=== PATIENT | male | born 1945 | race Caucasian/White ===

== ENCOUNTER 2017-05-04 19:28 | Emergency (ER) | payer OTHER, MEDICARE ==
--- OUTSIDE RECORDS SUMMARY | 2017-05-04 19:30 | XMS REPORT | Clinical Summary ---
:1945 Author Organization [facility] Address [address] [place] [address] Care Team Providers Name Role Phone Redd Kimble MD Primary Care Provider Allergies No Known Allergies Current Medications Not on file Active Problems Not on file Encounters Date Type Specialty Care Team Description 04/26/2017 Hospital Encounter Radiology Jaun Johnson, Cystic disease of liver; Abnormal findings on dx imaging of prt digestive tract; Obesity, unspecified classification, unspecified obesity type, unspecified whether serious comorbidity present; Metabolic syndrome 04/24/2017 Procedure Pass Radiology 04/24/2017 Transcribe Orders Access Jaun Johnson Cystic disease of liver (Primary Dx); Abnormal findings on dx imaging of prt digestive tract; Obesity, unspecified classification, unspecified obesity type, unspecified whether serious comorbidity present; Metabolic syndrome after 05/03/2016 Social History Tobacco Use Types Packs/Day Years Used Date Never Assessed Sex Assigned at Date Recorded Not on file Last Filed Vital Signs Vital Sign Reading Time Taken Blood Pressure - - Pulse - - Temperature - - Respiratory Rate - - Oxygen Saturation - - Inhaled Oxygen Concentration - - Weight 98 kg (216 lb) 04/26/2017 11:13 AM CDT Height - - Body Mass Index - - Plan of Treatment Health Maintenance Due Date Last Done Comments COLONOSCOPY 11/11/1993 ZOSTER VACCINE 2003 PNEUMOCOCCAL POLYSACCHARIDE VACCINE AGE 65 AND OVER 11/11/2008 PNEUMOCOCCAL-13 11/11/2008 INFLUENZA VACCINE 09/11/2016 Results MRI Abdomen W Wo Contrast (04/26/2017 12:20 PM) Specimen Performing Laboratory [facility] [address] [place] [address] Narrative EXAMINATION:MRI ABDOMEN W WO CONTRAST CLINICAL HISTORY:Q44.6 Cystic disease of liver, R93.3 Abnormal findings on diagnostic imaging of other parts of digestive tract, Q44.6R93.3E66.9E88.81 TECHNIQUE: Multiplanar multisequence MR images of the abdomen were obtained pre - and post dynamic intravenous administration of Gadolinium.. COMPARISON:None IMPRESSION: 1.Multiple cysts are present throughout the liver. The largest measures 6 x 5.3 x 4.1 cm in segment 2. Numerous other subcentimeter scattered cysts are present throughout all segments of both lobes. No suspicious solid mass present. 2.The gallbladder is unremarkable. No intra or extra hepatic biliary ductal dilatation present. The pancreatic duct is not dilated. 3.A small 2 mm cyst is present in the uncinate process of the pancreas likely representing a side branch IPMN. The pancreatic duct is not dilated 4.Small 2 to 3 mm cyst in the kidneys. No solid mass or hydronephrosis present 5.The spleen and adrenals are within normal limits. No significant lymphadenopathy free fluid present 6.Lung bases are clear 7.Bony structures are within normal limits Incidental Abdominal findings [facility] PQRS #[id number] required reporting elements: Liver < 0.5 cm: none Recommendation:n/a Cystic Renal < 1 cm: none Recommendation:n/a Adrenal < 1 cm:none Recommendation:n/a [facility]-[id number] Procedure Note Hm Interface, Radiology Results Incoming - 04/26/2017 12:28 PM CDT EXAMINATION: MRI ABDOMEN W WO CONTRAST CLINICAL HISTORY: Q44.6 Cystic disease of liver, R93.3 Abnormal findings on diagnostic imaging of other parts of digestive tract, Q44.6 R93.3 E66.9 E88.81 TECHNIQUE: Multiplanar multisequence MR images of the abdomen were obtained pre - and post dynamic intravenous administration of Gadolinium. . COMPARISON: None IMPRESSION: 1. Multiple cysts are present throughout the liver. The largest measures 6 x 5.3 x 4.1 cm in segment 2. Numerous other subcentimeter scattered cysts are present throughout all segments of both lobes. No suspicious solid mass present. 2. The gallbladder is unremarkable. No intra or extra hepatic biliary ductal dilatation present. The pancreatic duct is not dilated. 3. A small 2 mm cyst is present in the uncinate process of the pancreas likely representing a side branch IPMN. The pancreatic duct is not dilated 4. Small 2 to 3 mm cyst in the kidneys. No solid mass or hydronephrosis present 5. The spleen and adrenals are within normal limits. No significant lymphadenopathy free fluid present 6. Lung bases are clear 7. Bony structures are within normal limits Incidental Abdominal findings [facility] PQRS #405 required reporting elements: Liver < 0.5 cm: none Recommendation: n/a Cystic Renal < 1 cm: none Recommendation: n/a Adrenal < 1 cm: none Recommendation: n/a [facility]-[id number] POC creatinine (04/26/2017 11:16 AM) Component Value Ref Range POC creatinine 1.1 0.7 - 1.2 mg/dl Comment: Meter ID: [id number] Studio Potter: Claude Fenton Specimen Performing Laboratory Blood [facility] DEPARTMENT OF PATHOLOGY AND GENOMIC MEDICINE [address] [place] [address] after 05/03/2016 Insurance Payer Benefit Plan / Group Subscriber ID Type Phone Address MEDICARE MEDICARE PART A AND B xxxxxxxxxx Medicare [place], [place] AARP AARP SUPPLEMENT xxxxxxxxxxx Commercial Home: [address] [phone] [id number]
--- NOTE | 2017-05-04 20:50 | RAD REPORT ---
EXAM DESCRIPTION: Crystal Garcia (2 Views)05/04/2017 8:38 pm CLINICAL HISTORY: Chest pain COMPARISON: 2013 FINDINGS: The lungs appear clear of acute infiltrate. The heart is normal size. Postsurgical changes involve the chest. IMPRESSION: No acute abnormalities displayed
[2017-05-04] MEDS ORDERED: HYDROCODONE/APAP 5/325 MG TAB ONE (21:07)
[2017-05-04] MEDS ORDERED: IBUPROFEN 400 MG TAB ONE (21:08)
[2017-05-04] MEDS ORDERED: IBUPROFEN 200 MG TAB PO ONE (21:08)
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
[2017-05-04 21:44] VITALS: TEMP 98.1
[2017-05-04 21:45] VITALS: BP 148/88; O2SAT 96
== END 2017-05-04 21:36 | disposition home or self-care (01) ==
LOC: ER 19:28
DX: S29.011A Strain of muscle and tendon of front wall of thorax, initial encounter (principal); W22.8XXA Striking against or struck by other objects, initial encounter; Y93.89 Activity, other specified; Y92.89 Other specified places as the place of occurrence of the external cause; Z79.01 Long term (current) use of anticoagulants; Z79.82 Long term (current) use of aspirin; I10 Essential (primary) hypertension; E78.5 Hyperlipidemia, unspecified
CPT/HCPCS: 71046; 99284

== ENCOUNTER 2021-07-11 09:56 | Day surgery (SDC) | payer OTHER, MEDICARE ==
[2021-07-05 09:33] LABS: Absolute Lymphocytes (CBC) 1.8 K/uL (0.7-4.9); Hematocrit 45.8 % (39.6-49.0); Lymphocytes % 30.4 % (15.3-44.8); RBC Red Blood Cell Count 4.94 M/uL (4.33-5.43)
[2021-07-05 09:49] LABS: Protime INR 0.96
[2021-07-05 09:57] LABS: Potassium 4.4 mmol/L (3.5-5.1)
[2021-07-05 10:08] LABS: Urine Appearance CLEAR (Clear); Urine Bilirubin NEGATIVE (Negative); Urine Blood NEGATIVE (Negative); Urine Color YELLOW (Yellow); Urine Glucose NEGATIVE (Negative); Urine Microscopic Reflex ORDER UMIC; Urine Protein NEGATIVE (Negative); Urine Urobilinogen 0.2 mg/dL (0.2-1.0)
[2021-07-05 10:22] LABS: Urine Bacteria <20 /HPF (NONE SEEN); Urine RBC <5 /HPF (NONE SEEN)
--- NOTE | 2021-07-05 11:05 | RAD REPORT ---
EXAM DESCRIPTION: RAD - Chest Pa And Lat (2 Views) - 07/05/2021 9:41 am CLINICAL HISTORY: pre op for surgery COMPARISON: Chest Pa And Lat (2 Views) dated 05/04/2017; CHEST SINGLE VIEW dated 10/07/2012; CHEST SIN GLE VIEW dated 10/06/2012; CHEST PA AND LAT 2 VIEW dated 01/06/2001 FINDINGS: Lines: None. Lungs: No evidence of edema or pneumonia. Pleural: No significant pleural effusions or pneumothorax. Cardiac: The heart size is within normal limits. Bones: No acute fractures. Sternotomy. Other: IMPRESSION: No acute cardiopulmonary disease.
[2021-07-11] MEDS ORDERED: CEFAZOLIN 2 GM IN 0.9% NACL 2 GM/100 ML BAG IV ONE (10:15)
[2021-07-11] MEDS ORDERED: Ringers Lactate 1,000 ML IV ONE (10:20)
[2021-07-11] MEDS ORDERED: propofoL 200 MG/20 ML VIAL IV ONE (13:49)
[2021-07-11] MEDS ORDERED: FENTANYL CITR 100 MCG/2 ML ONE (13:49)
[2021-07-11] MEDS ORDERED: MIDAZOLAM HCL 2 MG/2 ML INJ ONE (13:50)
[2021-07-11] MEDS ORDERED: ROCURONIUM 50 MG/5 ML VIAL IV ONE (13:50)
[2021-07-11] MEDS ORDERED: ONDANSETRON 4 MG/2 ML VIAL ONE ×2 (13:52→17:07)
[2021-07-11] MEDS ORDERED: LIDOCAINE 1% MPF 2 ML AMPULE ONE (13:52)
[2021-07-11] MEDS ORDERED: BUPIVACAINE 0.25% PF 10 ML VIAL ONE (14:07)
[2021-07-11] MEDS ORDERED: BACITRACIN OINTMENT 14 GM TUBE TOP ONE (14:07)
[2021-07-11] MEDS ORDERED: EPHEDRINE SULF 50 MG/ML VIAL ONE (15:20)
[2021-07-11] MEDS ORDERED: NEOSTIGMINE 1 MG/ML -10 ML VIAL ONE (16:32)
[2021-07-11] MEDS ORDERED: GLYCOPYRROLATE 0.2 MG/ML SYR ONE (16:33)
[2021-07-11 17:00] VITALS: O2SAT 92
[2021-07-11] MEDS: HYDROMORPHONE HCL 1 MG/ML INJ ONE ×2 (17:05→17:15)
[2021-07-11 17:38] VITALS: BP 125/66; TEMP 97.1
[2021-07-11] MEDS ORDERED: HYDROCODONE/APAP 5/325 MG TAB PO PRN (18:45)
[2021-07-11] MEDS ORDERED: HYDROCODONE/APAP 5/325 MG TAB ONE (19:16)
--- NOTE | 2021-07-12 08:38 | OP ---
Surgeon: CATHY RAYMUNDO Preoperative Diagnosis: Large right hydrocele. Postoperative Diagnosis: Large right hydrocele. Principal Procedure: Jaboulay hydrocelectomy. Indication For Procedure: Mr. Granados presented to the Urology Clinic with a longstanding right-sided h ydrocele that had increased in size over the years. It had become bulky and bothersome to him and he desired excision. Procedure In Detail: The patient was consented in the preoperative holding area before being transfe rred to the operative suite where general anesthesia was induced. He was given 2 g of Ancef IV antim icrobial prophylaxis and pneumo boots were provided for DVT prophylaxis. His genitalia were shaved u sing Hibiclens and a razor, and prepped with Hibiclens and draped in standard fashion. The case was begun identifying a Vince's line incision within the left hemiscrotum approximately 3 cm in length a nd instilling subcutaneous 0.25% Marcaine for local anesthesia. An incision was made using a 15 blad e through the skin and dermis before electrocautery was used to incise the subcutaneous tissues and d artos layers. The tunica vaginalis was encountered and was dissected free from the surrounding darto s layers. Once sufficiently freed circumferentially, the sac was delivered through the incision and any residual attachments posteriorly were released from the surface of the tunica vaginalis. We then incised the anterior component of the hydrocele sac and evacuated several 100 cc of fluid from withi n. The fluid was clear yellow straw-colored per routine. I then incised the sac in an anterior-post erior direction to the level of the cord structures and the epididymis, superiorly and inferiorly res pectively. I then rotated the sac behind the cord structures and excised any extra component of the sac before then plicating the sac on itself using 3-0 Vicryl in a running and every 3 suture in inter locking fashion. Once this was done and hemostatic, I then performed a careful search for bleeding. I fulgurated any and all capillary vessels suspicious for bleeding within the sac of his scrotum and ensured the area was completely hemostatic. Copious irrigation was applied, and the testis was deli alysha back into the scrotum. I then sutured together the dartos layers using 3-0 Vicryl in a running fashion, and once this was completed, I then closed the skin using 3-0 chromic in a running fashion. Bacitracin was applied to the incision and fluff gauze and scrotal support was also applied. The p atient was then awakened from general anesthesia, transferred to a stretcher, and then transferred to the recovery room in good condition. Complications: None. Discharge Disposition: He should follow up in the Urology Clinic intervally within the next 6 to 8 w eeks interval assessment. SAVITA/DONAVAN Voice ID: [id number] Report ID: [id number]
== END 2021-07-11 18:45 | disposition home or self-care (01) ==
LOC: OR 09:56
PROVIDERS: ATTEND Urology
PROC: 0VB60ZZ Excision of Right Tunica Vaginalis, Open Approach (ICD-10-PCS; principal; 2021-07-11 11:30)
DX: N43.3 Hydrocele, unspecified (principal); I10 Essential (primary) hypertension; E78.00 Pure hypercholesterolemia, unspecified; N50.89 Other specified disorders of the male genital organs; Z95.1 Presence of aortocoronary bypass graft; Z20.822 Contact with and (suspected) exposure to COVID-19
CPT/HCPCS: 36415; 71046; 80048; 81003; 81015; 85025; 85610; 87086; 87088; 88302; J0690; J1170; J2250; J2405; J2704; J2710; J3010; J7120; U0002